=== PATIENT | female | born 1935 | race African-American/Black ===

== ENCOUNTER → 2017-01-01 | Outpatient (CLI) | payer MEDICARE, MEDICAID ==
[~2017-01-01] MED LIST: ALBU5SOL6 IH; ASPI-986 PO; ATOR10TA PO; CLOP75TA16 PO; COR3 PO; FAMO40TA7 PO; FLUT1DIS3 IH; FURO-151 PO; LOSA25TA3 PO; POTA-9 PO; PR125 PO; SITA1TAB8 PO
== END | disposition home or self-care (01) ==
LOC: MAMMO 10:02
PROVIDERS: ATTEND Internal Medicine
DX: Z12.31 Encounter for screening mammogram for malignant neoplasm of breast (principal)
CPT/HCPCS: G0202

== ENCOUNTER → 2023-03-20 | Outpatient (CLI) | payer MEDICARE ==
[~2023-03-20] MED LIST changes: +CLOP-31 PO; -CLOP75TA16 PO; +LOSA-412 PO; -LOSA25TA3 PO; +POTA-203 PO; -POTA-9 PO
== END | disposition home or self-care (01) ==
LOC: RAD 12:20
PROVIDERS: ATTEND Specialist
DX: Z95.0 Presence of cardiac pacemaker (principal)
CPT/HCPCS: 71046

== ENCOUNTER 2025-03-12 09:39 | Inpatient (IN) | payer MEDICARE, OTHER ==
[~2025-03-12] VITALS: Ht 162.6 cm; Wt 97.2 kg
[2025-03-12] VITALS (24 sets, daily range): BP systolic 33–146; BP diastolic 14–108; PULSE 70–131; RESP 12–21; TEMP 36.1956–36.6; O2SAT 98–100
[~2025-03-12 09:39] MED LIST changes: -FURO-151 PO; +MIDO5TAB4 PO
[2025-03-12] MEDS: DEXTROSE 50% WATER 50ML SYRINGE IV ONE ×2 (10:21)
[2025-03-12 10:35] LABS: HEMATOCRIT. 28.2 % (36.0-48.0); HEMOGLOBIN. 9.3 g/dL (12.0-16.0); MEAN PLATELET VOLUME 7.9 fl (7.4-10.4); PLATELET 439 x1000/uL (130-400); RED BLOOD CELL COUNT 3.36 mill/uL (4.2-5.4); RED CELL DISTRIBUTION WIDTH 17.1 % (11.6-14.6)
[2025-03-12] MEDS: SODIUM CHLORIDE 0.9% (SEPSIS BOLUS) IV ONE (10:41)
[2025-03-12] MEDS: DEXTROSE 10% WATER 500 ML IV ONE (10:42)
[2025-03-12] MEDS: CEFTRIAXONE 1GM/50ML 50 ML IV ONE (10:53)
[2025-03-12] MEDS: MORPHINE SULFATE 4 MG/ML INJ (FOR IV/IM USE) IV ONE (10:53)
[2025-03-12] MEDS: IOHEXOL-350 100 ML BOTTLE ONE (10:53)
[2025-03-12] MEDS: ONDANSETRON HCL 4MG/2ML INJ IV ONE (10:53)
[2025-03-12 10:54] LABS: INR 1.4
[2025-03-12 10:58] LABS: UREA NITROGEN BLOOD 34 mg/dL (9-23)
[2025-03-12 10:59] LABS: PROTEIN TOTAL 5.7 g/dL (6.0-8.3)
[2025-03-12 11:00] LABS: ASPARTATE AMINOTRANSFERASE 33 IU/L (<34); BILIRUBIN DIRECT 0.4 mg/dL (<=3.0); BILIRUBIN TOTAL 0.6 mg/dL (0.1-1.0)
[2025-03-12 11:05] LABS: CREATININE 2.5 mg/dL (0.6-1.0)
[2025-03-12 11:07] LABS: TROPONIN I HIGH SENSITIVITY 23 ng/L (3.0-34)
[2025-03-12] MEDS ORDERED: NOREPINEPHRINE 8 MG in DEXT 5% WATER 242 ML IV STA (11:20)
[2025-03-12] MEDS: METRONIDAZOLE 500 MG PREMIX 100 ML IV ONE (11:22)
[2025-03-12] MEDS ORDERED: DEXTROSE 50% WATER 50ML SYRINGE IV ONE (11:23)
[2025-03-12] MEDS: NOREPINEPHRINE 8MG/250ML PMX 250 ML IV ONE (11:59)
[2025-03-12] MEDS: NOREPINEPHRINE 8MG/250ML PMX 250 ML IV STA (12:00)
[2025-03-12 12:48] LABS: TROPONIN I HIGH SENSITIVITY 21 ng/L (3.0-34)
[2025-03-12 13:04] LABS: BG DEOXYHEMOGLOBIN 38.1 % (0.0-5.0)
[2025-03-12 14:04] LABS: BAND% 28.0 % (1.0-6.0); LYMPHOCYTES % MANUAL 11.0 % (20.0-60.0); METAMYELOCYTES % 7.0 % (0-0); MONOCYTES % MANUAL 13.0 % (2.0-8.0); NEUTROPHILS % MANUAL 41.0 % (45.0-75.0)
[2025-03-12 14:05] LABS: PLATELET ESTIMATE SLIGHTLY INCREASED
[2025-03-12] MEDS ORDERED: GUAIFENESIN 200MG/10ML SUGAR FREE UDC PO PRN (16:00)
[2025-03-12] MEDS ORDERED: IPRATROPIUM/ALBUTEROL 0.5-3(2.5)MG/3ML NEB HHN PRN (16:00)
[2025-03-12] MEDS ORDERED: ACETAMINOPHEN 325MG TABLET PO PRN ×2 (16:00)
[2025-03-12] MEDS ORDERED: DOCUSATE SODIUM 100MG CAPSULE PO PRN (16:00)
[2025-03-12] MEDS ORDERED: ONDANSETRON HCL 4MG/2ML INJ IV PRN (16:00)
[2025-03-12] MEDS ORDERED: CLONIDINE 0.1MG TABLET PO PRN (16:00)
[2025-03-12] MEDS ORDERED: LORAZEPAM 0.5MG TABLET PO PRN (16:00)
[2025-03-12] MEDS ORDERED: METRONIDAZOLE 500 MG PREMIX 100 ML IV SCH (16:21)
[2025-03-12] MEDS ORDERED: CEFTRIAXONE 2GM/50ML 50 ML IV SCH (16:30)
[2025-03-12] MEDS ORDERED: DEXT 5%/0.9% NACL 1,000 ML IV SCH (16:30)
[2025-03-12] MEDS ORDERED: NOREPINEPHRINE 8MG/250ML PMX 250 ML IV PRN (17:00)
[2025-03-12 17:44] LABS: BG BASE EXCESS -15.8 mmol/L (-2.0-3.0); BG CARBOXYHEMOGLOBIN 1.0 % (0.5-1.5); BG DEOXYHEMOGLOBIN 0.1 % (0.0-5.0); BG FRACTION INSPIRED OXYGEN 100; BG HCO3 ACT 11.2 mmol/L (21.0-28.0); BG METHEMOGLOBIN 0.8 % (0.5-1.5); BG OXYGEN SATURATION 99.9 % (94.0-98.0); BG OXYHEMOGLOBIN 98.1 % (94.0-98.0); BG PCO2 30.7 mmHg (32.0-45.0); BG PH 7.180 (7.350-7.450); BG PO2 397.0 mmHg (83.0-108.0); BG SAMPLE SITE RIGHT RADIAL; BG TOTAL HEMOGLOBIN 9.5 g/dL (12.0-16.0); BG VENT MODE MASK - BIPAP; BG VENT RATE 16.0 set
[2025-03-12] MEDS: INSULIN LISPRO 100 UNITS/ML SUBCUT SCH (21:00)
[2025-03-12] MEDS: NOREPINEPHRINE 8MG/250ML PMX 250 ML IV PRN (21:10)
[2025-03-12] MEDS: SODIUM BICARBONATE 8.4% 50MEQ/50ML SYR IV NR (22:01)
[2025-03-12] MEDS: PIPERACILLIN/TAZO 3.375G/50ML 50 ML IV SCH (22:02)
[2025-03-12] MEDS: LACTATED RINGERS 500 ML IV NR (22:02)
[2025-03-12 22:42] LABS: BG BASE EXCESS -12.8 mmol/L (-2.0-3.0); BG CARBOXYHEMOGLOBIN 0.3 % (0.5-1.5); BG DEOXYHEMOGLOBIN 0.5 % (0.0-5.0); BG FRACTION INSPIRED OXYGEN 80; BG HCO3 ACT 12.9 mmol/L (21.0-28.0); BG METHEMOGLOBIN 0.3 % (0.5-1.5); BG OXYGEN SATURATION 99.5 % (94.0-98.0); BG OXYHEMOGLOBIN 98.9 % (94.0-98.0); BG PCO2 29.2 mmHg (32.0-45.0); BG PH 7.264 (7.350-7.450); BG PO2 362.0 mmHg (83.0-108.0); BG SAMPLE SITE RIGHT RADIAL; BG TOTAL HEMOGLOBIN 9.9 g/dL (12.0-16.0); BG VENT MODE MASK - BIPAP
[2025-03-13] VITALS (97 sets, daily range): BP systolic 61–151; BP diastolic 40–90; PULSE 77–161; RESP 14–34; TEMP 36.2–37; O2SAT 73–100
[2025-03-13] MEDS: LACTATED RINGERS 500 ML IV SCH (00:42)
[2025-03-13] MEDS: SODIUM BICARBONATE 150 MEQ in DEXTROSE 5% WATER 850 ML IV SCH (00:49)
[2025-03-13] MEDS: NOREPINEPHRINE 8MG/250ML PMX 250 ML IV PRN (01:07)
[2025-03-13 07:06] LABS: BASOPHILS % 0.1 % (0.0-2.0); EOSINOPHILS % 0.5 % (0.0-5.0); HEMATOCRIT. 29.9 % (36.0-48.0); HEMOGLOBIN. 10.0 g/dL (12.0-16.0); LYMPHOCYTES % 12.1 % (20.0-50.0); MEAN PLATELET VOLUME 8.0 fl (7.4-10.4); MONOCYTES % 12.3 % (2.0-8.0); NEUTROPHILS % 75.0 % (40.0-76.0); PLATELET 326 x1000/uL (130-400); RED BLOOD CELL COUNT 3.52 mill/uL (4.2-5.4); RED CELL DISTRIBUTION WIDTH 17.3 % (11.6-14.6)
[2025-03-13 07:20] LABS: CREATININE 2.4 mg/dL (0.6-1.0); UREA NITROGEN BLOOD 28 mg/dL (9-23)
[2025-03-13 07:22] LABS: PHOSPHORUS 1.9 mg/dL (2.5-4.9)
[2025-03-13] MEDS: BLOOD SUGAR DIAGNOSTIC STRIP TEST SCH (07:30)
[2025-03-13] MEDS ORDERED: CALCIUM GLUCONATE 1GM PREMIX 50 ML IV ONE (08:45)
[2025-03-13] MEDS: SODIUM BICARBONATE 8.4% 50MEQ/50ML SYR IV SCH (09:27)
[2025-03-13] MEDS: PANTOPRAZOLE SODIUM 40 MG/VIAL IV SCH (09:27)
[2025-03-13 09:47] LABS: BG BASE EXCESS -5.5 mmol/L (-2.0-3.0); BG CARBOXYHEMOGLOBIN 0.2 % (0.5-1.5); BG DEOXYHEMOGLOBIN 3.0 % (0.0-5.0); BG FLOW(L/min) 3.00 L/min; BG FRACTION INSPIRED OXYGEN 32; BG HCO3 ACT 18.2 mmol/L (21.0-28.0); BG METHEMOGLOBIN 0.2 % (0.5-1.5); BG OXYGEN SATURATION 97.0 % (94.0-98.0); BG OXYHEMOGLOBIN 96.6 % (94.0-98.0); BG PCO2 29.7 mmHg (32.0-45.0); BG PH 7.406 (7.350-7.450); BG PO2 84.2 mmHg (83.0-108.0); BG SAMPLE SITE RIGHT RADIAL; BG TOTAL HEMOGLOBIN 9.9 g/dL (12.0-16.0); BG VENT MODE NASAL CANNULA
[2025-03-13] MEDS: CALCIUM GLUCONATE 1,000 MG in SODIUM CHLORIDE 0.9% 50 ML IV SCH (10:02)
[2025-03-13] MEDS: SODIUM CHLORIDE 0.9% 1,000 ML IV SCH (10:03)
[2025-03-13] MEDS: SODIUM PHOSPHATE 15 MMOL in DEXT 5% WATER 245 ML IV SCH (12:34)
[2025-03-13] MEDS: MIDODRINE HCL 5MG TABLET PO SCH (13:47)
[2025-03-13 17:49] LABS: CLARITY URINE CLOUDY (CLEAR); COLOR URINE DARK YELLOW (YELLOW); GLUCOSE URINE NEGATIVE (NEGATIVE); KETONES URINE NEGATIVE (NEGATIVE); LEUKOCYTE ESTERASE URINE NEGATIVE (NEGATIVE); NITRITE URINE NEGATIVE (NEGATIVE); OCCULT BLOOD URINE 2+ (NEGATIVE); PH URINE 5.0 (4.5-8.0); PROTEIN URINE 1+ (NEGATIVE); SPECIFIC GRAVITY URINE 1.037 (1.005-1.030); UROBILINOGEN URINE 0.2 E.U./dL (0.2-1.0)
[2025-03-13 20:52] LABS: BACTERIA URINE 2+; SQUAMOUS EPITHELIAL CELL URINE 1+ /lpf (RARE/1+); WBC URINE 0-2 /hpf (0-2)
[2025-03-13] MEDS: ENOXAPARIN 40MG/0.4ML SYR SUBCUT SCH (21:27)
[2025-03-13] MEDS: SODIUM CHLORIDE 0.9% 1,000 ML IV ONE (21:35)
[2025-03-14] VITALS (114 sets, daily range): BP systolic 37–183; BP diastolic 10–135; PULSE 66–175; RESP 18–55; TEMP 36.7–37.2; O2SAT 73–100
[2025-03-14] MEDS: SODIUM BICARBONATE 8.4% 50MEQ/50ML SYR IV ONE ×2 (05:47→05:49)
[2025-03-14 07:15] LABS: HEMATOCRIT. 24.5 % (36.0-48.0); HEMOGLOBIN. 8.2 g/dL (12.0-16.0); MEAN PLATELET VOLUME 8.5 fl (7.4-10.4); PLATELET 247 x1000/uL (130-400); RED BLOOD CELL COUNT 2.97 mill/uL (4.2-5.4); RED CELL DISTRIBUTION WIDTH 17.0 % (11.6-14.6)
[2025-03-14 07:16] LABS: CREATININE 3.1 mg/dL (0.6-1.0)
[2025-03-14 07:17] LABS: UREA NITROGEN BLOOD 48.0 mg/dL (9-23)
[2025-03-14 07:19] LABS: PHOSPHORUS 3.2 mg/dL (2.5-4.9)
[2025-03-14] MEDS: DEXT 5%/0.45% NACL 1000ML 1,000 ML IV SCH (11:14)
[2025-03-14 11:26] LABS: BAND% 16.0 % (1.0-6.0); LYMPHOCYTES % MANUAL 30.0 % (20.0-60.0); METAMYELOCYTES % 3.0 % (0-0); MONOCYTES % MANUAL 16.0 % (2.0-8.0); MYELOCYTES % 5.0 % (0-0); NEUTROPHILS % MANUAL 30.0 % (45.0-75.0); NUCLEATED RED BLOOD CELLS 2 /100 WBC; PLATELET ESTIMATE NORMAL
[2025-03-14 13:15] LABS: BG BASE EXCESS -9.7 mmol/L (-2.0-3.0); BG CARBOXYHEMOGLOBIN 1.1 % (0.5-1.5); BG DEOXYHEMOGLOBIN 7.9 % (0.0-5.0); BG FLOW(L/min) 5.00 L/min; BG FRACTION INSPIRED OXYGEN 44; BG HCO3 ACT 14.5 mmol/L (21.0-28.0); BG METHEMOGLOBIN 0.4 % (0.5-1.5); BG OXYGEN SATURATION 92.0 % (94.0-98.0); BG OXYHEMOGLOBIN 90.6 % (94.0-98.0); BG PCO2 26.0 mmHg (32.0-45.0); BG PH 7.363 (7.350-7.450); BG PO2 64.8 mmHg (83.0-108.0); BG SAMPLE SITE RIGHT RADIAL; BG TOTAL HEMOGLOBIN 9.3 g/dL (12.0-16.0); BG VENT MODE NASAL CANNULA
[2025-03-14] MEDS: DEXTROSE 50% WATER 50ML SYRINGE IV PRN (14:11)
[2025-03-14] MEDS: VASOPRESSIN 20 UNIT in SODIUM CHLORIDE 0.9% 99 ML IV PRN (15:49)
[2025-03-14] MEDS: ATROPINE SULFATE 1MG/10ML SYR IV SCH (16:27)
[2025-03-14] MEDS: DOPAMINE 400MG/250ML PREMIX 250 ML IV PRN (16:28)
[2025-03-14] MEDS: PHENYLEPHRINE 100 MG in DEXT 5% WATER 240 ML IV PRN (16:47)
[2025-03-14] MEDS: DEXT 10% WATER 1,000 ML IV SCH (17:14)
[2025-03-14 17:35] LABS: BG BASE EXCESS -11.6 mmol/L (-2.0-3.0); BG CARBOXYHEMOGLOBIN 0.3 % (0.5-1.5); BG DEOXYHEMOGLOBIN 0.7 % (0.0-5.0); BG FLOW(L/min) 15.00 L/min; BG FRACTION INSPIRED OXYGEN 100; BG HCO3 ACT 13.6 mmol/L (21.0-28.0); BG METHEMOGLOBIN 0.2 % (0.5-1.5); BG OXYGEN SATURATION 99.3 % (94.0-98.0); BG OXYHEMOGLOBIN 98.8 % (94.0-98.0); BG PCO2 28.7 mmHg (32.0-45.0); BG PH 7.295 (7.350-7.450); BG PO2 316.0 mmHg (83.0-108.0); BG SAMPLE SITE RIGHT RADIAL; BG TOTAL HEMOGLOBIN 9.7 g/dL (12.0-16.0); BG VENT MODE MASK - NRB
[2025-03-14] MEDS: SODIUM BICARBONATE 8.4% 50MEQ/50ML SYR IV NR (18:26)
[2025-03-14 23:28] LABS: BG BASE EXCESS -16.9 mmol/L (-2.0-3.0); BG CARBOXYHEMOGLOBIN 0.3 % (0.5-1.5); BG DEOXYHEMOGLOBIN 3.6 % (0.0-5.0); BG FRACTION INSPIRED OXYGEN 40; BG HCO3 ACT 9.5 mmol/L (21.0-28.0); BG METHEMOGLOBIN 0.5 % (0.5-1.5); BG OXYGEN SATURATION 96.4 % (94.0-98.0); BG OXYHEMOGLOBIN 95.6 % (94.0-98.0); BG PCO2 24.8 mmHg (32.0-45.0); BG PH 7.202 (7.350-7.450); BG PO2 101.3 mmHg (83.0-108.0); BG SAMPLE SITE RIGHT RADIAL; BG TOTAL HEMOGLOBIN 9.7 g/dL (12.0-16.0); BG TOTAL RESPIRATORY RATE 30 b/min; BG VENT MODE NASAL CANNULA
[2025-03-15] VITALS (111 sets, daily range): BP systolic 33–143; BP diastolic 10–99; PULSE 0–161; RESP 0–33; TEMP 36.7–37.4; O2SAT 48–100
[2025-03-15] MEDS: PIPERACILLIN/TAZO 3.375G/50ML IV SCH (00:25)
[2025-03-15 02:16] LABS: BG BASE EXCESS -19.7 mmol/L (-2.0-3.0); BG CARBOXYHEMOGLOBIN 0.3 % (0.5-1.5); BG DEOXYHEMOGLOBIN 2.6 % (0.0-5.0); BG FRACTION INSPIRED OXYGEN 30; BG HCO3 ACT 8.1 mmol/L (21.0-28.0); BG METHEMOGLOBIN 0.2 % (0.5-1.5); BG OXYGEN SATURATION 97.4 % (94.0-98.0); BG OXYHEMOGLOBIN 96.9 % (94.0-98.0); BG PCO2 25.9 mmHg (32.0-45.0); BG PH 7.114 (7.350-7.450); BG PO2 117.4 mmHg (83.0-108.0); BG SAMPLE SITE RIGHT RADIAL; BG TOTAL HEMOGLOBIN 9.6 g/dL (12.0-16.0); BG TOTAL RESPIRATORY RATE 25 b/min; BG VENT MODE MASK - BIPAP; BG VENT RATE 16.0 set
[2025-03-15] MEDS: SODIUM BICARBONATE 8.4% 50MEQ/50ML SYR IV NR ×7 (02:30→19:32)
[2025-03-15] MEDS: SODIUM BICARBONATE 150 MEQ in SODIUM CHLORIDE 0.45% 850 ML IV SCH (03:16)
[2025-03-15] MEDS: NOREPINEPHRINE 32 MG in DEXT 5% WATER 218 ML IV PRN (03:18)
[2025-03-15] MEDS ORDERED: CALCIUM GLUCONATE 1GM PREMIX 50 ML IV ONE ×3 (04:00→06:00)
[2025-03-15 04:04] LABS: HEMATOCRIT. 26.1 % (36.0-48.0); HEMOGLOBIN. 8.4 g/dL (12.0-16.0)
[2025-03-15 04:13] LABS: MEAN PLATELET VOLUME 8.5 fl (7.4-10.4); PLATELET 185 x1000/uL (130-400); RED BLOOD CELL COUNT 3.15 mill/uL (4.2-5.4); RED CELL DISTRIBUTION WIDTH 17.5 % (11.6-14.6)
[2025-03-15 04:13] LABS: BG BASE EXCESS -18.9 mmol/L (-2.0-3.0); BG CARBOXYHEMOGLOBIN 0.4 % (0.5-1.5); BG DEOXYHEMOGLOBIN 2.3 % (0.0-5.0); BG FRACTION INSPIRED OXYGEN 30; BG HCO3 ACT 7.7 mmol/L (21.0-28.0); BG METHEMOGLOBIN 0.5 % (0.5-1.5); BG OXYGEN SATURATION 97.7 % (94.0-98.0); BG OXYHEMOGLOBIN 96.8 % (94.0-98.0); BG PCO2 21.2 mmHg (32.0-45.0); BG PH 7.179 (7.350-7.450); BG PO2 134.1 mmHg (83.0-108.0); BG SAMPLE SITE RIGHT RADIAL; BG TOTAL HEMOGLOBIN 9.0 g/dL (12.0-16.0); BG TOTAL RESPIRATORY RATE 28 b/min; BG VENT MODE MASK - BIPAP; BG VENT RATE 16.0 set
[2025-03-15 04:15] LABS: CREATININE 3.5 mg/dL (0.6-1.0); UREA NITROGEN BLOOD 44 mg/dL (9-23)
[2025-03-15 04:16] LABS: PROTEIN TOTAL 4.6 g/dL (6.0-8.3)
[2025-03-15 04:17] LABS: ASPARTATE AMINOTRANSFERASE 73 IU/L (<34); BILIRUBIN TOTAL 0.5 mg/dL (0.1-1.0); PHOSPHORUS 5.1 mg/dL (2.5-4.9)
[2025-03-15] MEDS: ALBUMIN HUMAN 12.5G/250ML (5%) IV NR (04:38)
[2025-03-15] MEDS: HYDROCORTISONE SOD SUCCINATE 100 MG/2 ML VIAL IV SCH (04:55)
[2025-03-15] MEDS ORDERED: HYDROCORTISONE SOD SUCCINATE 100 MG/2 ML VIAL IV SCH (06:00)
[2025-03-15] MEDS: SODIUM CHLORIDE 0.9% (SEPSIS BOLUS) IV ONE ×2 (06:00→07:28)
[2025-03-15] MEDS: VANCOMYCIN 1.5GM/250ML IV NR (06:30)
[2025-03-15] MEDS: EPINEPHRINE 20 MG in SODIUM CHLORIDE 0.9% 480 ML IV PRN (06:52)
[2025-03-15] MEDS: ATROPINE SULFATE 0.1MG/ML 10ML DISP.SYRIN IV NR (07:27)
[2025-03-15] MEDS ORDERED: PROPOFOL 10MG/ML 100ML 100 ML IV PRN (09:30)
[2025-03-15] MEDS ORDERED: MIDAZOLAM 100MG/100ML PMX 100 ML IV PRN (09:30)
[2025-03-15 13:08] LABS: BG BASE EXCESS -25.5 mmol/L (-2.0-3.0); BG CARBOXYHEMOGLOBIN 1.7 % (0.5-1.5); BG DEOXYHEMOGLOBIN 0.4 % (0.0-5.0); BG FRACTION INSPIRED OXYGEN 100; BG HCO3 ACT 4.1 mmol/L (21.0-28.0); BG METHEMOGLOBIN 0.5 % (0.5-1.5); BG OXYGEN SATURATION 99.6 % (94.0-98.0); BG OXYHEMOGLOBIN 97.4 % (94.0-98.0); BG PCO2 18.3 mmHg (32.0-45.0); BG PEEP (cmH2O) 5.0 cmH2O; BG PH 6.972 (7.350-7.450); BG PO2 273.8 mmHg (83.0-108.0); BG SAMPLE SITE RIGHT RADIAL; BG TIDAL VOLUME(mL) 450.0 mL; BG TOTAL HEMOGLOBIN 7.3 g/dL (12.0-16.0); BG VENT MODE VENT - AC; BG VENT RATE 26.0 set
[2025-03-15] MEDS ORDERED: AMIODARONE HCL 300 MG in DEXT 5% WATER 100 ML IV ONE (13:45)
[2025-03-15] MEDS: AMIODARONE 150MG/100ML PREMIX IV SCH ×2 (13:58→14:07)
[2025-03-15] MEDS: METRONIDAZOLE 500 MG PREMIX 100 ML IV SCH (14:03)
[2025-03-15] MEDS: AMIODARONE HCL 900 MG in DEXT 5% WATER 482 ML IV SCH (15:09)
[2025-03-15] MEDS: SODIUM CHLORIDE 0.9% 500 ML IV ONE (15:30)
[2025-03-15] MEDS: EPINEPHRINE 0.1MG/ML (1:10,000) 10ML SYR IV SCH (16:00)
[2025-03-15] MEDS: SODIUM BICARBONATE 8.4% 50MEQ/50ML SYR IV SCH (16:00)
[2025-03-15] MEDS: HEPARIN 25,000 UNITS PREMIX 250 ML IV SCH (18:16)
[2025-03-15 19:02] LABS: BG BASE EXCESS -26.8 mmol/L (-2.0-3.0); BG CARBOXYHEMOGLOBIN 1.4 % (0.5-1.5); BG DEOXYHEMOGLOBIN 0.8 % (0.0-5.0); BG FRACTION INSPIRED OXYGEN 60; BG HCO3 ACT 3.0 mmol/L (21.0-28.0); BG METHEMOGLOBIN 0.1 % (0.5-1.5); BG OXYGEN SATURATION 99.2 % (94.0-98.0); BG OXYHEMOGLOBIN 97.7 % (94.0-98.0); BG PCO2 15.0 mmHg (32.0-45.0); BG PEEP (cmH2O) 5.0 cmH2O; BG PH 6.917 (7.350-7.450); BG PO2 243.3 mmHg (83.0-108.0); BG SAMPLE SITE ALINE; BG TIDAL VOLUME(mL) 450.0 mL; BG TOTAL HEMOGLOBIN 4.5 g/dL (12.0-16.0); BG VENT MODE VENT - AC; BG VENT RATE 32.0 set
[2025-03-15 19:55] LABS: TRIGLYCERIDE 108 mg/dL (0-150)
[2025-03-15 20:26] LABS: LDL CHOLESTEROL < 5 mg/dL (5-100)
[2025-03-15 20:29] LABS: PHOSPHORUS 9.3 mg/dL (2.5-4.9)
[2025-03-15 20:37] LABS: BAND% 11.0 % (1.0-6.0); LYMPHOCYTES % MANUAL 18.0 % (20.0-60.0); MONOCYTES % MANUAL 13.0 % (2.0-8.0); NEUTROPHILS % MANUAL 58.0 % (45.0-75.0); PLATELET ESTIMATE NORMAL
[2025-03-15] MEDS ORDERED: HEPARIN BOLUS PRN aPTT <36 IV (23:00)
[2025-03-15] MEDS ORDERED: HEPARIN 25,000 UNITS PREMIX 250 ML IV SCH (23:00)
[2025-03-15] MEDS ORDERED: HEPARIN BOLUS PRN aPTT 37-44 IV (23:00)
[2025-03-15] MEDS ORDERED: IOHEXOL-350 100 ML BOTTLE ONE (23:41)
[2025-03-15 23:56] LABS: CREATININE 3.0 mg/dL (0.6-1.0); UREA NITROGEN BLOOD 36.0 mg/dL (9-23)
[2025-03-16] VITALS (8 sets, daily range): BP systolic 94; BP diastolic 45; RESP 32; O2SAT 98
[2025-03-16 00:55] LABS: BG BASE EXCESS -18.2 mmol/L (-2.0-3.0); BG CARBOXYHEMOGLOBIN 0.3 % (0.5-1.5); BG DEOXYHEMOGLOBIN 0.8 % (0.0-5.0); BG FRACTION INSPIRED OXYGEN 60; BG HCO3 ACT 7.4 mmol/L (21.0-28.0); BG METHEMOGLOBIN 0.1 % (0.5-1.5); BG OXYGEN SATURATION 99.2 % (94.0-98.0); BG OXYHEMOGLOBIN 98.8 % (94.0-98.0); BG PCO2 16.4 mmHg (32.0-45.0); BG PEEP (cmH2O) 5.0 cmH2O; BG PH 7.271 (7.350-7.450); BG PO2 304.9 mmHg (83.0-108.0); BG SAMPLE SITE RIGHT RADIAL; BG TIDAL VOLUME(mL) 450.0 mL; BG TOTAL HEMOGLOBIN 2.3 g/dL (12.0-16.0); BG VENT MODE VENT - AC; BG VENT RATE 32.0 set
[2025-03-16 01:33] LABS: RED BLOOD CELL COUNT 0.87 mill/uL (4.2-5.4); RED CELL DISTRIBUTION WIDTH 17.6 % (11.6-14.6)
[2025-03-16 01:41] LABS: PLATELET 31 x1000/uL (130-400)
[2025-03-16 01:58] LABS: TROPONIN I HIGH SENSITIVITY 1464 ng/L (3.0-34)
[2025-03-16] MEDS ORDERED: HEPARIN BOLUS PRN aPTT 30-44 IV (05:00)
[2025-03-16] MEDS ORDERED: HEPARIN BOLUS PRN aPTT <30 IV (05:00)
== END 2025-03-16 05:33 | DRG 871 ==
LOC: ER 09:39 → EDBEDREQSVC 12:49 → EDBEDREQ 15:24 → EDBEDREQTM 15:24 → 5EST 19:18 → MICUNO 03-15 11:23
PROVIDERS: ADMIT Internal Medicine; ATTEND Internal Medicine
PROC: 5A09357 Assistance with Respiratory Ventilation, Less than 24 Consecutive Hours, Continuous Positive Airway Pressure (ICD-10-PCS; 2025-03-12)
PROC: 5A09357 Assistance with Respiratory Ventilation, Less than 24 Consecutive Hours, Continuous Positive Airway Pressure (ICD-10-PCS; principal; 2025-03-14)
PROC: 02HV33Z Insertion of Infusion Device into Superior Vena Cava, Percutaneous Approach (ICD-10-PCS; 2025-03-14)
PROC: B548ZZA Ultrasonography of Superior Vena Cava, Guidance (ICD-10-PCS; 2025-03-14)
PROC: 5A1935Z Respiratory Ventilation, Less than 24 Consecutive Hours (ICD-10-PCS; 2025-03-15)
PROC: 0BH17EZ Insertion of Endotracheal Airway into Trachea, Via Natural or Artificial Opening (ICD-10-PCS; 2025-03-15)
PROC: 04HY32Z Insertion of Monitoring Device into Lower Artery, Percutaneous Approach (ICD-10-PCS; 2025-03-15)
PROC: 5A12012 Performance of Cardiac Output, Single, Manual (ICD-10-PCS; 2025-03-16)
DX: A41.9 Sepsis, unspecified organism (principal); I26.99 Other pulmonary embolism without acute cor pulmonale; R65.21 Severe sepsis with septic shock; I50.23 Acute on chronic systolic (congestive) heart failure; J96.21 Acute and chronic respiratory failure with hypoxia; N17.0 Acute kidney failure with tubular necrosis; J18.9 Pneumonia, unspecified organism; R57.0 Cardiogenic shock; K56.609 Unspecified intestinal obstruction, unspecified as to partial versus complete obstruction; Z79.02 Long term (current) use of antithrombotics/antiplatelets; I13.0 Hypertensive heart and chronic kidney disease with heart failure and stage 1 through stage 4 chronic kidney disease, or unspecified chronic kidney disease; E11.22 Type 2 diabetes mellitus with diabetic chronic kidney disease; N18.9 Chronic kidney disease, unspecified; D63.1 Anemia in chronic kidney disease; E66.01 Morbid (severe) obesity due to excess calories; K56.7 Ileus, unspecified; E87.20 Acidosis, unspecified; I47.10 Supraventricular tachycardia, unspecified; E83.39 Other disorders of phosphorus metabolism; E11.649 Type 2 diabetes mellitus with hypoglycemia without coma; E83.51 Hypocalcemia; K42.9 Umbilical hernia without obstruction or gangrene; I25.10 Atherosclerotic heart disease of native coronary artery without angina pectoris; E87.5 Hyperkalemia; M43.16 Spondylolisthesis, lumbar region; E78.5 Hyperlipidemia, unspecified; I25.5 Ischemic cardiomyopathy; K52.9 Noninfective gastroenteritis and colitis, unspecified; K56.41 Fecal impaction; M47.816 Spondylosis without myelopathy or radiculopathy, lumbar region; M48.061 Spinal stenosis, lumbar region without neurogenic claudication; Z79.82 Long term (current) use of aspirin; Z79.84 Long term (current) use of oral hypoglycemic drugs; Z79.899 Other long term (current) drug therapy; I25.2 Old myocardial infarction; Z95.810 Presence of automatic (implantable) cardiac defibrillator; Z82.49 Family history of ischemic heart disease and other diseases of the circulatory system; Z83.3 Family history of diabetes mellitus; Z90.710 Acquired absence of both cervix and uterus; Z68.36 Body mass index [BMI] 36.0-36.9, adult
CPT/HCPCS: 36415; 36600; 71045; 71275; 74018; 74174; 80048; 80053; 80061; 80076; 81003; 82040; 82330; 82375; 82803; 82805; 82962; 83036; 83605; 83735; 83880; 84100; 84145; 84484; 85025; 85027; 92950; 93005; 93922; 93970; 94002; 94003; 94070; 94660; 94664; 99291; A4606; J0282; J0461; J0612; J0696; J1265; J1644; J1650; J1720; J1815; J2270; J2371; J2405; J2470; J2543; J2704; J3373; J3490; J7030; J7040; J7050; J7060; J7070; P9041; Q9967